=== PATIENT | female | born 1965 | race American Indian/Alaskan Native ===

== ENCOUNTER 2018-07-18 17:24 | Emergency (ER) | payer SELFPAY ==
--- NOTE | 2018-07-18 18:00 | Emergency Department Report ---
Chief Complaint: Extremity Injury, Lower Stated Complaint: LFT SIDE EXTREME PAIN Time Seen by Provider: 07/18/18 17:59 - HPI History of Present Illness: SEVERE L HIP PAIN NO TRAUMA PMH SLE LOW BP IS N FOR HER RX NONE PSH FEMALE MSE COMPLETED MSE screening note: Focused history and physical exam performed. Due to findings the following was ordered: ED Disposition for MSE Condition: Stable
[2018-07-18 18:03] VITALS: BP 97/49
--- NOTE | 2018-07-18 18:59 | XRay Report ---
FINAL REPORT PROCEDURE: Left hip. TECHNIQUE: AP pelvis, frogleg lateral view of the left hip. HISTORY: Hip pain. COMPARISON: No prior studies are available for comparison. FINDINGS: The bones appear intact without fracture or dislocation. The joint spaces appear normal. The soft tis sues are unremarkable. IMPRESSION: Normal study.
[2018-07-18] MEDS ORDERED: TORADOL IM ONE (20:59)
[2018-07-18] MEDS ORDERED: VALIUM PO ONE (20:59)
--- NOTE | 2018-07-18 21:10 | Emergency Department Report ---
HPI - General Chief Complaint: Extremity Injury, Lower Time Seen by Provider: 07/18/18 17:59 - HPI HPI: 52-year-old female presents to the emergency department with a two-day history of pain starting in the left buttock and radiating down around into the left hip and groin and then down the leg. It worsens when she is laying flat or with any movement of the left leg. She denies any fall or trauma. She has a past medical history of lupus and pancreatitis. She tried some ibuprofen and one dose of someone else's Tylenol No. 3 without any relief. She denies any fever, skin color change, edema. ED Past Medical Hx - Past Medical History Previous Medical History?: Yes Additional medical history: lupus. pancreatitis - Surgical History Past Surgical History?: Yes Additional Surgical History: x3 - Social History Smoking Status: Never Smoker Substance Use Type: None - Medications Home Medications: Home Medications Medication Instructions Recorded Confirmed Last Taken Type No Known Home Medications [No 04/04/14 04/04/14 Unknown History Reported Home Medications] ED Review of Systems ROS: Stated complaint: LFT SIDE EXTREME PAIN Other details as noted in HPI Comment: All other systems reviewed and negative Constitutional: denies: chills, fever Eyes: denies: eye pain, vision change ENT: denies: ear pain, throat pain Respiratory: denies: cough, shortness of breath Cardiovascular: denies: chest pain, palpitations Gastrointestinal: denies: abdominal pain, vomiting Genitourinary: denies: dysuria, discharge Musculoskeletal: arthralgia, myalgia Skin: denies: rash, lesions Neurological: denies: headache, numbness Physical Exam - Physical Exam Vital Signs: Vital Signs 07/18/18 17:59 Temperature 97.9 F Pulse Rate 101 H Respiratory 16 Rate Blood Pressure 97/49 [Left] O2 Sat by Pulse 98 Oximetry Physical Exam: GENERAL: The patient is well-developed well-nourished. HEENT: Normocephalic. Atraumatic. Patient has moist mucous membranes. EYES: Extraocular motions are intact. NECK: Supple. Trachea is midline. CHEST/LUNGS: Clear to auscultation. There is no respiratory distress noted. HEART/CARDIOVASCULAR: Regular. There is no tachycardia. There is no obvious murmur. ABDOMEN: There is no abdominal distention. SKIN: Skin is warm and dry. NEURO: The patient is awake, alert, and oriented. The patient is cooperative. The patient has no focal neurologic deficits. The patient has normal speech. MUSCULOSKELETAL: There is some tenderness to palpation to the left lateral and anterior hip. There is increased pain to the left hip and buttock with straight leg raise test, which is positive. BACK: No midline thoracic or lumbar tenderness to palpation, step-off or de formity. ED Course Vital Signs 07/18/18 17:59 Temperature 97.9 F Pulse Rate 101 H Respiratory 16 Rate Blood Pressure 97/49 [Left] O2 Sat by Pulse 98 Oximetry ED Medical Decision Making - Medical Decision Making Patient presents with a 2 day history of some left buttock and hip pain with some radiation down the leg. It appears most consistent with sciatica or some type of radiculopathy. I spoke to the patient about treatment including a Toradol shot, muscle relaxer and then potentially some steroids. Shortly after I saw the patient, she started acting very agitated, yelling and cursing. The patient is understandably in pain and is frustrated by her weight but it was not more than 5 or 10 minutes after my evaluation that she began acting inappropriately. We attempted to speak to the patient to calm her down and asked her to stop yelling out loud for yelling/cursing and ER staff. At this point the patient says that she just wants to leave the hospital. She was given the medication for treatment. She was explained that it is recommended to stay throughout her ED course, see if there is a improvement in her discomfort and see if there is any further testing or evaluation necessary. She understands that by leaving before her evaluation has completed that she may experience worsening of her symptoms. However the patient does not want to remain in the emergency department any longer and despite these risks she has decided to sign out AGAINST MEDICAL ADVICE. - Differential Diagnosis sciatica, radiculopathy, osteoarthritis, fibromyalgia Critical Care Time: No Critical care attestation.: If time is entered above; I have spent that time in minutes in the direct care of this critically ill patient, excluding procedure time. ED Disposition Clinical Impression: Sciatica Qualifiers: Laterality: left Qualified Code(s): M54.32 - Sciatica, left side Disposition: LEFT AGAINST MED ADVICE Is pt being admited?: No Condition: Stable Referrals: PRIMARY CARE, [Primary Care Provider] - 3-5 Days Forms: AMA Form Time of Disposition: 22:06
== END 2018-07-18 21:38 | disposition left against medical advice (07) ==
LOC: ED 17:24
DX: M54.32 Sciatica, left side (principal); Z88.6 Allergy status to analgesic agent; Z88.5 Allergy status to narcotic agent
CPT/HCPCS: 73502; 96372; 99283; J1885